=== PATIENT | male | born 1945 | race Caucasian/White ===

== ENCOUNTER 2017-06-20 04:46 | Emergency (ER) | payer MEDICARE ==
--- NOTE | 2017-06-20 04:57 | ERNOTE ---
Back Pain ER HPI Presenting Symptoms: injury/pain to back, hx chronic back pain Time Seen by Provider: 06/20/17 04:48 Source: patient, family, RN notes reviewed Exam Limitations: no limitations Immunizations: IMMUNIZATION HX Immunizations Up to Date Yes Allergies/Adverse Reactions: Allergies No Known Allergies Allergy (Unverified 06/20/17 04:50) Home Medications: HOME MEDICATIONS Amlodipine Besylate 5 mg PO 06/20/17 [Last Taken Unknown] Cyclobenzaprine HCl [Flexeril] 10 mg PO TID PRN #30 tab 06/20/17 [Last Taken Unknown] Finasteride [Proscar] 5 mg PO 06/20/17 [Last Taken Unknown] Losartan/Hydrochlorothiazide [Hyzaar 100-25 Tablet] 1 06/20/17 [Last Taken Unknown] Meloxicam [Mobic] 15 mg PO DAILY 06/20/17 [Last Taken Unknown] Nebivolol HCl [Bystolic] 10 mg PO 06/20/17 [Last Taken Unknown] Ranitidine HCl [Zantac] 150 mg PO 06/20/17 [Last Taken Unknown] oxyCODONE HCL/ACETAMINOPHEN [Oxycodone-Acetaminophen 5-325] 1 each PO Q6H PRN # 16 tablet 06/20/17 [Last Taken Unknown] Narrative: Patient with history of disk problems in his back, comes in tonight stating he thinks he did something again to his back. He was working on a vehicle yesterday , noted the pain last night, woke up tonight with the pain much worse. He does recall that his back hurt last weekend, but it got better and he thought all was well. He has had multiple back surgeries, going to an orthopedic clinic in [place]. He states that this pain is very similar to his pain from his last surgery. Timing: Reports: constant, getting worse Quality/Severity: Reports: severe, throbbing Location of pain: Reports: lower back, radiating to lf thigh/leg Activities at Onset: Reports: activity - working on a vehicle Recent Injury?: Reports: possibly Possible Precipitating Factor: Reports: lifting, turning/bending Modifying Factors - (Improves): Reports: nothing Modifying Factors - (Worsens): Reports: upright position, movement to left, movement flexion, cough/deep breaths Associated Symptoms: Reports: numbess/weakness in legs Prior Treament: Reports: similar symptoms before Review of Systems - Review of Systems Constitutional: Absent: recent illness, fever, chills, weakness, fatigue EYE: Present: no symptoms reported ENT: Absent: ear pain, sore throat Respiratory: Absent: shortness of breath, cough Cardiology: Absent: chest pain, palpitations Gastrointestinal/Abdominal: Absent: nausea, vomiting, diarrhea, constipation, abdominal pain Genitourinary: Present: no symptoms reported Musculoskeletal: Present: back pain, muscle pain Skin: Present: no symptoms reported Neurological: Present: numbness - left thigh, tingling - left thigh Endocrine: Present: no symptoms reported Hematologic/Lymphatic: Present: no symptoms reported Psych: Present: no symptoms reported - Patient's Past Medical History Patient History - Cardiac/Respiratory: Hypertension, Hyperlipidemia Patient History - Surgical Procedures: Back Surgery - Social History Living Situations: home Smoking Status: Former smoker - Immunizations Immunizations Up to Date: Yes Physical Exam - Physical Exam General Appearance: Present: wd/wn, alert, severe distress, anxious, thin Head Exam: Present: normal inspection, no evidence of injury Eye Exam: Normal inspection: bilateral, PERRL: bilateral, EOMI: bilateral Ears, Nose, Throat: Present: normal ENT inspection Neck: Present: normal inspection, nontender Respiratory: Present: no respiratory distress, normal breath sounds, no accessory muscle use, chest nontender, lungs clear Cardiovascular/Chest: Present: regular rate, rhythm, no murmur Gastrointestinal/Abdominal: Present: normal bowel sounds, nontender, nondistended, soft Back Exam: Present: CVA tenderness (L), decreased range of motion Extremity Exam: Present: normal inspection, non-tender, normal range of motion, no edema Neurological Exam: Present: alert, oriented, normal mood/affect, no motor/ sensory deficits Skin Exam: Present: normal color, warm/dry ED Progress - Vital Signs Patient's Vital Signs:: I have reviewed the patient's vital signs. Vital Signs: Vital Signs 06/20/17 04:50 Temperature 36.5 C Pulse Rate 65 Respiratory 20 Rate Blood Pressure 190/103 O2 Sat by Pulse 98 Oximetry - Progress/Reassessment Chief Complaint: Back Pain Progress:: Improved Progress Note-Subjective: 06/20/17 06:57 Morphine 4 mg IM, Ondansetron 4 mg SL Dilaudid 1 mg IM Departure Clinical Impression: Acute thoracic back pain Qualifiers: Back pain laterality: left Qualified Code(s): M54.6 - Pain in thoracic spine - Departure Disposition: Home self-care Condition: Good Instructions: Back Pain, Adult Referrals: Orthopedic [Provider Group] (Call today to be seen as soon as possible at the Orthopedic Clinic you go to in [place].) Prescriptions: Cyclobenzaprine HCl [Flexeril] 10 mg PO TID PRN #30 tab PRN Reason: MUSCLE SPASMS oxyCODONE HCL/ACETAMINOPHEN [Oxycodone-Acetaminophen 5-325] 1 each PO Q6H PRN # 16 tablet PRN Reason: Pain
[2017-06-20] MEDS ORDERED: ONDANSETRON 4 MG TAB.RAPDIS PO ONE (04:58)
[2017-06-20] MEDS ORDERED: MORPHINE SULFATE 4 MG/ML SYRG IM ONE (04:58)
[2017-06-20] MEDS ORDERED: ONDANSETRON 4 MG TAB.RAPDIS ONE (04:59)
[2017-06-20] MEDS ORDERED: MORPHINE SULFATE 4 MG/ML SYRG ONE (04:59)
[2017-06-20] MEDS ORDERED: HYDROmorphone HCL 1 MG/ML DISP.SYRIN IM ONE (06:03)
[2017-06-20] MEDS ORDERED: HYDROmorphone HCL 1 MG/ML DISP.SYRIN ONE (06:06)
[2017-06-20 07:10] VITALS: BP 152/68
== END 2017-06-20 07:30 | disposition home or self-care (01) ==
LOC: ER 04:46
DX: M54.6 Pain in thoracic spine (principal)

== ENCOUNTER 2019-05-19 06:30 | Inpatient (IN) ==
[~2019-05-19 06:30] MED LIST: MORPHINE SULFATE 15 MG TABLET.SA PO PRN; TRANEXAMIC ACID 1,000 MG in NORMAL SALINE 100 ML IV PRN; ceFAZolin SODIUM 1 GM VIAL IV PRN
[2019-05-19] MEDS: RINGER'S SOLUTION,LACTATED 1,000 ML IV PRN ×2 (07:09→08:30)
--- NOTE | 2019-05-19 07:39 | ANES ---
Anesthesia Pre Procedure Eval Vitals/Labs: Last Vital Signs Temp 36.4 C 05/19/19 06:45 Pulse 60 05/19/19 06:45 Resp 18 05/19/19 06:45 BP 147/81 05/19/19 06:45 Pulse Ox 97 05/19/19 06:45 HOME MEDICATIONS Finasteride [Proscar] 5 mg PO DAILY 06/20/17 [Last Taken 05/18/19] aspirin 81 mg tablet,delayed release 81 mg PO DAILY 01/19/19 [Last Taken 05/18/19] atorvastatin 80 mg tablet 80 mg PO DAILY 01/19/19 [Last Taken 05/18/19] clopidogrel 75 mg tablet 75 mg PO DAILY 01/19/19 [Last Taken 05/14/19] hydrochlorothiazide 25 mg tablet 25 mg PO DAILY 01/19/19 [Last Taken 05/19/19] pantoprazole 40 mg tablet,delayed release 40 mg PO DAILY 01/19/19 [Last Taken 05/18/19] Irbesartan [Avapro] 300 mg PO DAILY 05/19/19 [Last Taken 05/18/19] Allergies/Adverse Reactions: Allergies Allergy/AdvReac Type Severity Reaction Status Date / Time No Known Allergies Allergy Verified 05/19/19 06:41 - Planned Procedure Planned Procedure: Left Arthroplasty Total Shoulder Reverse Medication List Reviewed:: Yes Allergies Verified: Yes Medical History (Updated 04/13/19 @ 13:47 by Rell Espinoza MD) Abdominal pain Onset Date: 06/07/03 [facility] BPH without urinary obstruction Onset Date: Unknown Izquierdo's esophagus Onset Date: 06/07/09 [facility] Chest pain Onset Date: 05/21/08 [facility] Gastroesophageal reflux Onset Date: 06/07/09 [facility] Hypertension Onset Date: Unknown [facility] Low back pain Onset Date: Unknown many years Prostatitis Onset Date: Unknown Surgical History (Updated 05/17/19 @ 12:24 by Xenia Kennedy RN) History of esophagogastroduodenoscopy (EGD) Onset Date: 06/07/09 [id number] negative History of hydrocelectomy Onset Date: Unknown History of laminectomy Onset Date: Unknown x4 History of shoulder surgery Onset Date: Unknown History of umbilical hernia repair Onset Date: Unknown S/P endoscopic carpal tunnel release Onset Date: 01/29/19 left hx of stent placement Onset Date: 2016 cardiac Family History (Updated 01/19/19 @ 10:23 by Jeffrey Zhong RN) Father , age 79 Brain tumor Mother Arthritis - Family Anesthesia History Family History:: no untoward family reactions to anesthesia, no familial bleeding tendencies, no family history of clotting disorders, no family history of premature - Airway/Neck/Teeth Teeth Condition: intact Neck Exam: full range of motion Mallampatti Score: 1 Thyromental (T-M) distance: > 6 cm Mandibulo Hyoid distance: > 3 cm - Respiratory Respiratory Physical: lungs clear Smoking Status: Former smoker - quit 30+ years Sleep Apnea currently treated: No Sleep Apnea by current assessment: No - Cardiovascular Cardiac History: CAD, hypertension Tolerate Activity: Fair Heart Sounds: S1 & S2, Regular - Anesthesia Assessment and Plan ASA Class: PS, III Anesthesia Type Plan: General LMA, Block - interscalene block for post op pain relief
--- NOTE | 2019-05-19 10:42 | OR ---
Operative Report - Dictated Report Narrative: DATE OF PROCEDURE: 05/19/2019 PHYSICIAN: Rell Espinoza MD ACID ADJUSTER: Estevan Sargent PA-C (provided and essential set of skilled, educated hands that assisted with transfer, positioning, prepping, draping, manipulation, retraction, placement of implants, irrigation, closure wounds, and application of dressings all which cannot be performed by the available surgical crew) PREOPERATIVE DIAGNOSIS: Left rotator cuff deficient shoulder arthrosis. POSTOPERATIVE DIAGNOSIS: Left rotator cuff deficient shoulder arthrosis. OPERATIONS AND PROCEDURES: Left reverse total shoulder arthroplasty. ANESTHESIA: General plus regional. COMPLICATIONS: None. DRAINS: None. SPECIMENS: Bone -for disposal per patient request. ESTIMATED BLOOD LOSS: 100 mL. RETAINED IMPLANTS: 1. DePuy Delta Xtend cementless metaglene. 2. Delta Xtend glenosphere, 42 mm standard. 3. Delta Xtend size 12 modular humeral CAIN-coated cementless stem. 4. Size 2 left modular eccentric epiphysis CAIN-coated cementless. 5. Delta Xtend standard polyethylene size 42 plus 3 mm. 6. Metaglene locking screws, 36 mm and 42 mm in length. 7. Nonlocking metaglene screws, 18 mm x 2 . INDICATIONS FOR PROCEDURE: Mr. Hair is a 73-year-old gentleman with significant past history of rotator cuff tears and deficiency. He had treated these conservatively and had an irreparable rotator cuff with some progression of arthrosis of the shoulder and difficulty with activities of daily living in pain. He was seen in clinic and had failed conservative measures. He wished to proceed with surgical treatment. The risks, benefits, and alternatives were discussed in clinic, including the risk of , blood clots, bleeding, infection, nerve/tendon/blood vessel injury, malposition of components, failure of components, wear or limited range of motion, stiffness, and need for additional procedures, and she wished to proceed. Consent was obtained here in the clinic. DESCRIPTION OF PROCEDURE: After marking the correct extremity in the preoperative holding area, the patient was taken to the operating room. A timeout was performed. IV antibiotics consisting of Ancef were administered prior to procedure. The regional followed by general anesthetic was induced by the nurse butter maker at my request. He was then transitioned to beach chair position with all bony prominences well padded. The head in neutral, legs with SCDs and supported,and the nonoperative arm supported. The surgical arm was prescrubbed with alcohol then prepped and draped in the standard sterile fashion and the skin was covered with ioban. A deltopectoral incision was made and blunt dissection was carried down through the skin. The cephalic vein was identified, protected, and retracted. We then went through the deltopectoral interval, exposing the proximal humerus. It was noted that there was no rotator cuff, supraspinatus and infraspinatus tendon, or teres minor tendon. The subscapularis was intact as well as the biceps. A tag suture was placed in subscapularis tendon as well as the anterior capsule, and this was elevated off the anterior humerus passing along the bicipital groove and into the rotator cuff interval, exposing the proximal humerus. This was then freed off the proximal humerus. A biceps tenotomy was performed and the shoulder was dislocated. The humeral head was noted to show signs of arthrosis. Next, an entry drill was placed down the humerus centered on the longitudinal a xis entering off just onto the articular surface on the humeral head. Next were serial reamers up to the size 12 were utilized, which gave good overall cortical contact. Next, a proximal humeral head cut was performed. We made the cut at approximately 10 degrees of retroversion. This appeared to resect an appropriate amount of humeral head. There was a large inferior neck osteophyte that extended posteriorly that was resected. This was then pinned into place and an oscillating saw was utilized to cut this humeral head, protecting the surrounding soft tissues. We then placed a cap over the proximal humerus and turned our attention to the glenoid. The soft tissues were then elevated off the humeral neck as well as circumferentially around the glenoid. The glenoid was exposed. The remaining biceps tendon and labrum were resected. Using tractors, the glenoid was exposed and a guidewire was placed just posterior and inferior to the center of the glenoid. This was made so that it directed slightly superiorly but otherwise perpendicular to the glenoid on the axillary plane. Protecting the surrounding soft tissues, a reamer was utilized in order to remove the remaining cartilage. A hand plate stacker was utilized in order to resect the superior cartilage, and this resulted in a good overall appearance of the glenoid. The center drill lug hole was drilled and had good circumferential bone. The metaglene was then impacted into place and oriented for placement of screws along the mid plane in the superior and inferior quadrants of the glenoid as well as anterior to posterior screws. These were drilled and had appropriate overall length of screws on the superior and inferior metaglene screws. Good purchase was obtained with a 36 mm screw superiorly and 42 mm screw inferiorly. The anterior and posterior screws were drilled and 18 mm anterior and 18mm posterior nonlocking screws were placed. We then locked the superior and inferior screws into place. This gave good overall compression down to the glenoid with flat overall appearance and an appropriate alignment. We returned our attention to the proximal humerus. The proximal humeral reaming guide was placed for an eccentric reamer. This was utilized in order to prepare the proximal humerus. The trial stem was assembled on the back table and impacted into place. After placing the trial stem, we then returned to the metaglene. The glenosphere was then secured to the metaglene, impacted, and tightened ensuring that this was seated completely. We then returned to the humeral component and placed the trials of polyethylene inserts and found that the 3mm gave good overall longitudinal traction with no gapping. The shoulder was able to reach 140 degrees of forward flexion and 130 degrees of abduction, external rotation was to 80 degrees and with fulcrum and armpit were unable to hinge the joint out of place, and there was no essentially no gapping of the polyethylene off the humeral head nor any signs of impingement on the glenoid neck. We felt that these were the appropriately placed and sized implants. We then dislocated the shoulder, removed the trial implants, thoroughly irrigated the humerus, impacted the final implants into place in the prior determined retroversion. The trial polyethylene was utilized again and was noted that the actual stem and the trial stem were equal in tension, and thus the final polyethylene was impacted into place. The shoulder was reduced, again noted to be stable, was then thoroughly irrigated. The subscapularis and biceps tendon were secured to the surrounding soft tissues using a #1 Ethibond suture. The deltopectoral interval was closed with #0 Vicryl. The deep tissues were then closed with #0 Vicryl, subcutaneous with 3-0 Monocryl, and the skin with carolynn. Xeroform, 4 x 4, ABD, soft roll, and full arm Chip was applied. The patient was placed in a shoulder sling, awoken, and transferred to postanesthesia care in stable condition. All sponge, needle, and instrument counts were correct prior to closing the wounds. We will obtain postoperative films and be admitted to the floor for postoperative pain control, IV antibiotics, and starting of physical therapy. I anticipate a one to two night hospital stay.
[2019-05-19] MEDS ORDERED: MAGNESIUM HYDROXIDE 30 ML UDC PO PRN (10:44)
[2019-05-19] MEDS ORDERED: DEXTROSE 5%-LACTATED RINGERS 1,000 ML IV PRN (10:44)
[2019-05-19] MEDS ORDERED: ACETAMINOPHEN 500 MG TABLET PO PRN (10:44)
[2019-05-19] MEDS ORDERED: ONDANSETRON HCL/PF 2 MG/ML VIAL IV PRN (10:44)
[2019-05-19] MEDS ORDERED: diphenhydrAMINE HCL 50 MG/ML VIAL IV PRN (10:44)
[2019-05-19] MEDS ORDERED: MAG HYDROX/ALUMINUM HYD/SIMETH 30 ML UDC PO PRN (10:44)
[2019-05-19] MEDS ORDERED: ZOLPIDEM TARTRATE 5 MG TABLET PO PRN (10:44)
--- NOTE | 2019-05-19 10:54 | ANES ---
Post Anesthesia Discharge - Transfer of Care Transfer of Care handoff given to nurse: Yes - Discharge from PACU Discharge from PACU when meets criteria: Yes - Comfortable in PACU.
--- NOTE | 2019-05-19 10:55 | ANES ---
Anesthesia Procedure Note Procedure Note: ANESTHESIA PROCEDURE NOTE Date of Procedure: [05/19/2019 Time of procedure: 7:40 AM. Performed by: REINIER Fuentes CRNA, MSN Test Lead: Tri De La Garza RN. Preprocedure diagnosis: Left total shoulder arthroplasty pain. Post procedure diagnosis: Same. Procedure: Left interscalene nerve block. Indications: Post post left total shoulder surgery pain relief. Findings: See below. Details of the procedure: The patient was brought to OR #4 and placed in semi- Fowlers position. The patient was prepped with chlorhexidine and using ultrasound guidance the left interscalene segment of the brachial plexus was identified and lidocaine 1% was infiltrated to the skin of the intended injection site. Under ultrasound guidance the interscalene nerve bundles were approached with visualization of a 2inch stimulator needle visualized unde ultrasound until a shoulder/arm response was identified on nerve stimulator. Once the stimulator response was effective at less than 0.5 mV and greater than 0.3 mV the bracheal plexus nerves at this level were surrounded with 30 mL bupivacaine 0.55% with 1-200,000 epinephrine. Please see radiology/ultrasound report for details and retained images of the procedure. EBL: 0 Fluids: N/A. Specimen: N/A. Post procedure condition: The patient tolerated the procedure well. No complications were noted. Thank you for this consultation. Justin Garcia CRNA, ARNP, MSN
--- NOTE | 2019-05-19 11:29 | ANES ---
Post Anesthesia Assessment - Vital Signs Vitals: Last Vital Signs Temp 36.6 C 05/19/19 11:05 Pulse 65 05/19/19 11:05 Resp 16 05/19/19 11:05 BP 122/62 05/19/19 11:05 Pulse Ox 96 05/19/19 11:05 Airway Patency: Normal - Mental Status Level Of Consciousness: Awake, Alert, Appropriate - Pain Level Pain Score: 0 - N/V Assessment Nausea/Vomiting Presence: None Dehydration:: No
[2019-05-19] MEDS: KETOROLAC TROMETHAMINE 15 MG/ML VIAL IV SCH ×3 (11:35→22:38)
[2019-05-19] MEDS: ceFAZolin SODIUM 1 GM in DEXTROSE 5 % IN WATER 100 ML IV SCH ×4 (13:02→17:48)
[2019-05-19] MEDS: ASPIRIN 325 MG TABLET.DR PO SCH (20:45)
[2019-05-19] MEDS: MORPHINE SULFATE 15 MG TABLET.SA PO SCH (20:48)
[2019-05-19] MEDS ORDERED: ROSUVASTATIN CALCIUM 20 MG TABLET PO SCH (21:00)
[2019-05-19] MEDS ORDERED: SENNOSIDES/DOCUSATE SODIUM 1 TAB TABLET PO SCH (21:00)
[2019-05-19] MEDS ORDERED: LOSARTAN POTASSIUM 50 MG TABLET PO SCH (22:15)
[2019-05-20] MEDS: ceFAZolin SODIUM 1 GM in DEXTROSE 5 % IN WATER 100 ML IV SCH ×2 (01:23)
[2019-05-20] MEDS: oxyCODONE HCL/ACETAMINOPHEN 1 TAB TABLET PO PRN ×3 (02:05→11:25)
[2019-05-20] MEDS: KETOROLAC TROMETHAMINE 15 MG/ML VIAL IV SCH ×2 (04:02→11:53)
[2019-05-20 05:38] LABS: Hematocrit 43.4 % (42.0-52.0); Hemoglobin 14.4 gm/dL (13.5-18.0); Mean Cell Volume 93.1 fl (78-100); Mean Corpuscular Hemoglobin 30.9 pg (27-31); Mean Corpuscular Hgb Conc 33.2 g/dl (32-36); Mean Platelet Volume 10.7 fl (8-11.3); Platelet Count 151 K/mm3 (150-450); Red Blood Count 4.66 M/mm3 (4.7-6.0); Red Cell Distribution Width 12.7 % (11.5-14.0); White Blood Count 7.3 K/mm3 (4.0-10.5)
[2019-05-20 05:51] LABS: Anion Gap 8.9 mmol/L (6.8-13.8); BUN/Creatinine Ratio 13.5 (9.0-21.6); Calcium * 8.2 mg/dL (7.9-10.9); Carbon Dioxide 29.5 mmol/L (24-32.6); Estimated Creat Clear 46.7; Potassium 3.4 mmol/L (3.4-4.6)
[2019-05-20] MEDS ORDERED: PANTOPRAZOLE SODIUM 40 MG TABLET.EC PO SCH (07:00)
[2019-05-20] MEDS ORDERED: FINASTERIDE 5 MG TABLET PO SCH (09:00)
[2019-05-20] MEDS ORDERED: HYDROCHLOROTHIAZIDE 25 MG TABLET PO SCH (09:00)
[2019-05-20] MEDS: MORPHINE SULFATE 15 MG TABLET.SA PO SCH (09:21)
[2019-05-20] MEDS: ASPIRIN 325 MG TABLET.DR PO SCH (09:21)
--- NOTE | 2019-05-20 11:49 | DS ---
Date of Discharge:: 05/20/19 Description of Stay: Mr. Hair was admitted to the floor after undergoing right reverse total shoulder arthroplasty. Tolerated this well. Was admitted to the floor postoperatively for 24 hours of IV antibiotics, pain control, medical comanagement, and occupational and physical therapy. OT and PT were consulted to assist with activities of daily living and ambulation. Pain was initially controlled with IV regimen. This was transitioned to oral once tolerating a by mouth intake. Was resumed on home diet and medications. SCD and HECTOR hose were utilized for DVT prophylaxis. Vital signs remained stable to the hospital course. Serial labs were obtained which showed a final hemoglobin of 14.4 grams. BMP was reviewed and was stable. Physical examination throughout the hospital course showed an extremity that had sensation that was intact to light touch, palpable pulse. Patient was able to ambulate with physical therapy with the immobilizer on. Once an oral pain regimen was tolerated and physical therapy goals were met, it was felt that they were stable for discharge to home. Instructions: Discharge with instructions to be in immobilizer besides home exercises and therapy. Keep wound clean and dry and covered with dry dressing. If you note any drainage or for comfort you can cover with dry gauze and tape. Change every 2-3 days as needed. Continue with physical therapy. Resume home diet. Report any fever over 101.5 Fahrenheit, uncontrolled pain, increased drainage, foul odor of drainage, new or increased calf pain or shortness of breath, or any other significant complaints. He was instructed to resume his Plavix on Friday, May 22. No driving until instructed otherwise. Follow up in approximately 10-14 days. Procedures Performed: see notes below List Procedures: Right reverse total shoulder arthroplasty Results and Findings: Lab Pending Results 05/20/19 05:15: WBC 7.3, RBC 4.66 L, Hgb 14.4, Hct 43.4, MCV 93.1, MCH 30.9, MCHC 33.2, RDW 12.7, Plt Count 151, MPV 10.7 05/20/19 05:15: Sodium 138, Plasma Sodium 138, Potassium 3.4, Chloride 103, Carbon Dioxide 29.5, Anion Gap 8.9, BUN 21, Creatinine 1.55 H, Est GFR (Non-Af Amer) 47 L, BUN/Creatinine Ratio 13.5, Random Glucose 121 H, Calcium 8.2 Discharge Location: Home Disposition: Home self-care Condition: Good Discharge Activity: Other - In immobilizer Discharge Diet: Low salt Referrals: Rell Espinoza MD [Staff Physician] - 06/14/19 10:30 am Problem Oriented Discharge Instructions to Patient/Family: Shoulder Joint Replacement Additional Patient Instructions (free text): Occupational Therapy at [facility] outpatient rehab on Friday at 1:00pm. Follow up in the office with Dr. Espinoza on at 10:30am. Prescriptions (Any new or edited meds): Morphine Sulfate [Ms Contin] 15 mg PO Q12H #20 tablet.sa oxyCODONE HCL/ACETAMINOPHEN [Percocet 5 MG/325 MG] 2 tab PO Q4H PRN #60 tab PRN Reason: Moderate Pain (Pain Scale 4-6) Sennosides/Docusate Sodium [Senokot-S] 2 tab PO HS #30 tab Complete Home Medications List: Complete Home Medication List: Finasteride [Proscar] 5 mg PO DAILY 06/20/17 aspirin 81 mg tablet,delayed release 81 mg PO DAILY 01/19/19 atorvastatin 80 mg tablet 80 mg PO DAILY 01/19/19 clopidogrel 75 mg tablet 75 mg PO DAILY 01/19/19 hydrochlorothiazide 25 mg tablet 25 mg PO DAILY 01/19/19 pantoprazole 40 mg tablet,delayed release 40 mg PO DAILY 01/19/19 Irbesartan [Avapro] 300 mg PO DAILY 05/19/19 Morphine Sulfate [Ms Contin] 15 mg PO Q12H #20 tablet.sa 05/20/19 Sennosides/Docusate Sodium [Senokot-S] 2 tab PO HS #30 tab 05/20/19 oxyCODONE HCL/ACETAMINOPHEN [Percocet 5 MG/325 MG] 2 tab PO Q4H PRN #60 tab 05/20/19 Amb Orders for Discharge: OT Evaluation and Treatment Location: None Selected
[2019-05-20 13:25] VITALS: BP 130/72
== END 2019-05-20 13:25 | disposition home or self-care (01) | DRG 483 ==
LOC: MS 06:30
PROVIDERS: ADMIT Orthopaedic Surgery; ATTEND Orthopaedic Surgery
DX: I10 Essential (primary) hypertension; I25.10 Atherosclerotic heart disease of native coronary artery without angina pectoris; M75.122 Complete rotator cuff tear or rupture of left shoulder, not specified as traumatic; M19.012 Primary osteoarthritis, left shoulder
CPT/HCPCS: 36415; 73030; 80048; 85027; 97110; 97161; 97165

== ENCOUNTER 2019-10-05 06:32 | Inpatient (IN) ==
[~2019-10-05 06:32] MED LIST changes: +ISOPROPYL ALCOHOL 480 APPL BTL MC ONE; -MORPHINE SULFATE 15 MG TABLET.SA PO PRN; +ceFAZolin SODIUM 1 GM VIAL ONE
[2019-10-05] MEDS ORDERED: PROPOFOL VIAL IV ONE (07:11)
[2019-10-05] MEDS ORDERED: ONDANSETRON HCL/PF 2 MG/ML VIAL ONE (07:11)
[2019-10-05] MEDS ORDERED: BUPIVACAINE HCL/EPINEPHRINE 50 ML VIAL ONE (07:11)
[2019-10-05] MEDS: RINGER'S SOLUTION,LACTATED 1,000 ML IV PRN ×2 (07:14→08:50)
--- NOTE | 2019-10-05 07:33 | ANES ---
Anesthesia Pre Procedure Eval Vitals/Labs: Last Vital Signs Temp 36.7 C 10/05/19 06:42 Pulse 64 10/05/19 06:42 Resp 18 10/05/19 06:42 BP 158/88 H 10/05/19 06:42 Pulse Ox 98 10/05/19 06:42 HOME MEDICATIONS Finasteride [Proscar] 5 mg PO DAILY 06/20/17 [Last Taken 05/18/19] aspirin 81 mg tablet,delayed release 81 mg PO DAILY 01/19/19 [Last Taken 05/18/19] atorvastatin 80 mg tablet 80 mg PO DAILY 01/19/19 [Last Taken 05/18/19] hydrochlorothiazide 25 mg tablet 25 mg PO DAILY 01/19/19 [Last Taken 10/05/19 05:45] pantoprazole 40 mg tablet,delayed release 40 mg PO DAILY 01/19/19 [Last Taken 05/18/19] Irbesartan [Avapro] 300 mg PO HS 05/19/19 [Last Taken 10/04/19] naproxen sodium 220 mg tablet 220 mg PO BID PRN 06/03/19 [Last Taken Unknown] gabapentin 600 mg tablet 600 mg PO HS tab 09/24/19 [Last Taken Unknown] Allergies/Adverse Reactions: Allergies Allergy/AdvReac Type Severity Reaction Status Date / Time No Known Allergies Allergy Verified 09/24/19 08:03 - Planned Procedure Planned Procedure: Right Total Shoulder vs Reverse Total Shoulder Medication List Reviewed:: Yes Allergies Verified: Yes Medical History (Last Reviewed 10/05/19 @ 07:32 by Hernán Bedolla CRNA) Abdominal pain Onset Date: 06/07/03 [facility] BPH without urinary obstruction Onset Date: Unknown Izquierdo's esophagus Onset Date: 06/07/09 [facility] Chest pain Onset Date: 05/21/08 Beckert, benign Gastroesophageal reflux Onset Date: 06/07/09 [facility] Hypertension Onset Date: Unknown [facility] Low back pain Onset Date: Unknown many years Prostatitis Onset Date: Unknown Surgical History (Last Reviewed 10/05/19 @ 07:32 by Hernán Bedolla CRNA) Status post reverse total shoulder replacement (Chronic) Left, Alexis 05/19/19 Right, Sofiyalittle 10/05/2019 History of esophagogastroduodenoscopy (EGD) Onset Date: 06/07/09 [id number] negative History of hydrocelectomy Onset Date: Unknown History of laminectomy Onset Date: Unknown x4 History of shoulder surgery Onset Date: Unknown History of umbilical hernia repair Onset Date: Unknown S/P endoscopic carpal tunnel release Onset Date: 01/29/19 left hx of stent placement Onset Date: 2016 cardiac Family History (Last Reviewed 10/05/19 @ 07:32 by Hernán Bedolla CRNA) Father , age 79 Brain tumor Mother Arthritis - Family Anesthesia History Family History:: no untoward family reactions to anesthesia - Airway/Neck/Teeth Within Normal Limits:: Yes Teeth Condition: intact Neck Exam: full range of motion Mallampatti Score: 2 Thyromental (T-M) distance: > 6 cm Mandibulo Hyoid distance: > 3 cm - Respiratory Respiratory Physical: lungs clear Smoking Status: Former smoker Sleep Apnea currently treated: No Sleep Apnea by current assessment: No - Cardiovascular Cardiac History: hypertension, hyperlipidemia Tolerate Activity: Good Heart Sounds: S1 & S2, Regular - Gastrointestinal NPO since: [place] - Anesthesia Assessment and Plan ASA Class: PS, II Anesthesia Type Plan: General LMA - interscalene nerve block Planned difficult intubation/equipment available: No
[2019-10-05] MEDS ORDERED: ACETAMINOPHEN 500 MG TABLET PO PRN (10:14)
[2019-10-05] MEDS ORDERED: MAGNESIUM HYDROXIDE 30 ML UDC PO PRN (10:14)
[2019-10-05] MEDS ORDERED: oxyCODONE HCL/ACETAMINOPHEN 1 TAB TABLET PO PRN (10:14)
[2019-10-05] MEDS ORDERED: MORPHINE SULFATE 2 MG/ML DISP.SYRIN IV PRN (10:14)
[2019-10-05] MEDS ORDERED: NORMAL SALINE 1,000 ML IV PRN (10:14)
[2019-10-05] MEDS ORDERED: MAG HYDROX/ALUMINUM HYD/SIMETH 30 ML UDC PO PRN (10:14)
[2019-10-05] MEDS ORDERED: ONDANSETRON HCL/PF 2 MG/ML VIAL IV PRN (10:14)
--- NOTE | 2019-10-05 10:26 | OR ---
Operative Report - Dictated Report Narrative: Date: 10/05/2019 Physician: Mook Troncoso M.D. Internist: Feroz Powers PA-C provided a set of essential, skilled, educated hands that assisted in positioning, transfer, retraction, manipulation, irrigation, closure of wounds, and placement of dressings all of which could not be provided by the available surgical crew. Preoperative diagnosis: Right shoulder glenohumeral osteoarthritis Postoperative diagnosis: Right shoulder glenohumeral osteoarthritis Procedure: Right anatomic total shoulder arthroplasty Anesthesia: General plus regional Complications: None Estimated blood loss: 200 mL Specimens: Bone for disposal Retained implants: Depuy Global Unite size 12 standard stem, Global Unite anatomic proximal body size 12, Global Unite eccentric humeral head 56 mm x 18 mm, Global anchor peg glenoid size 56 mm, Erazo [employer] Nephew Q fix 2.8 mm all suture anchors x2 Drains: None Indications: Shaw is a 74 year-old male who has been followed in my clinic with complaints of shoulder pain consistent with right glenohumeral arthritis. Physical exam and diagnostic imaging were consistent with his complaints and concern for glenohumeral arthritis with an intact rotator cuff. Conservative measures have failed including, but not limited to, passage of time, activity modification, medications, physical therapy/home exercise program, or injections. The risks, benefits, and alternatives were discussed in clinic. The risks being , bleeding, infection, blood clots, nerve, tendon, ligament, blood vessel injury, persistent pain, arthrosis, stiffness, need for prolonged therapy, implant failure/loosening, need for additional procedures, and persistent symptoms. Consent was obtained in the clinic. Procedure: After marking the correct extremity in the preoperative holding area, a timeout was performed in the operating room. IV antibiotics consisting of 2 g of Ancef were administered prior to the procedure. A general followed by regional anesthetic was induced by the nurse lump roller. This was in the supine position, then the patient was transitioned to a beachchair position with all bony prominences well-padded, head in neutral, the nonoperative arm well supported, and the legs padded with SCDs in place. The operative shoulder was then prepped and draped in a standard sterile fashion. Preoperatively the shoulder had slightly limited abduction and external rotation. After marking out the bony landmarks, an approximately 12 cm deltopectoral incision was marked out and incised with a sharp knife. A combination of blunt dissection and electrocautery was carried down through subcutaneous tissue to the level of the deltopectoral fascia. The fascial interval was developed with Metzenbaum scissors identifying the cephalic vein which was protected. Blunt finger dissection was used to develop the deltopectoral interval and the deltoid and cephalic vein were retracted laterally while the pectoralis major was retracted medially. This revealed the conjoined tendon and anterior aspect of the shoulder. The bicipital groove was identified as well as the lesser tuberosity and we marked out our location for our subscapularis tenotomy. The subscapularis tendon was tagged with Vicryl suture and then peeled off of its insertion. Our incision was carried up through the rotator cuff interval to the level of the glenoid. The inferior aspect of the subscapularis as well as the inferior capsule was released taking care to protect the axillary nerve. The capsule was then released from the anterior and inferior aspects of the glenoid. At this point the arm was externally rotated and the shoulder dislocated delivering the humeral head up and out of the wound. The supraspinatus tendon was inspected and noted to be intact. At this point we identified our starting point for the humeral starting reamer centered over the intramedullary canal just onto the articular surface of the superior aspect of the humeral head. The entry reamer was advanced down the intramedullary canal of the humerus. Sequential hand reaming up to a size 12 mm reamer was performed achieving good chatter cortical chatter. The reamer was left in place and then the humeral head cutting jig was attached. This was placed in approximately 35 of r etroversion at the appropriate height based on the level of the greater tuberosity. This was then pinned into place and the reamer removed. The humeral head was then resected being careful to protect the supraspinatus insertion. A rongeur was used to clean up some anterior and inferior osteophyte. A protective metal cap was then placed over the cut end of the proximal humerus. Attention was then turned to the glenoid. A series of glenoid retractors were used to retract the humeral head posteriorly and inferior out of the way well as to retract the anterior soft tissue giving us 360 exposure of the glenoid. The labrum was then removed in its entirety with a sharp knife. The base of the coracoid was identified as well as the inferior/lateral border of the scapula and these were marked out to establish the bony anatomy of the glenoid. The glenoid was sized to a 56 mm component. The glenoid guide was then placed in the appropriate position and the center guide pin was advanced into place. The glenoid was then reamed removing all cartilage and soft tissue being careful to preserve subchondral bone. The central peg drill was then advanced down over our central pin and drilled. The drill guide for the peripheral pegs was then placed with one peg superiorly and two pegs inferiorly. These were sequentially drilled. The guide was then removed. The glenoid was then irrigated and thoroughly dried and bone cement was packed into the peripheral peg holes. A size 56 mm Global anchor peg glenoid was then impacted into place. Once the cement had adequately cured we turned our attention back to the humerus. A size 12 broach was advanced into the appropriate position once again in 35 of retroversion. A size 12 trial humeral stem was then impacted into place and we began trialing humeral heads. It was determined that a size 56 x 18 mm eccentric head with the eccentricity placed posteriorly gave us the best fit with good stability. Full passive range of motion was able to be obtained. The final humeral components were then assembled on the back table and then impacted into its final position in the appropriate amount of retroversion. A final check demonstrated full passive range of motion with good stability. At this point the wound was copiously irrigated with normal saline. The subscapularis was repaired with two 2.8 mm all suture anchors in the lesser tuberosity. 0 Vicryl was utilized in order to close the delto-pectoral fascia. 3-0 Vicryl was placed in the subcutaneous tissue. Skin was closed with a running subcuticular 4-0 Monocryl. Dressings consisting of Prineo, 4 x 4, ABD, and tape were applied. The operative arm was then placed in a shoulder immobilizer. All sponge, needle, blade, and instrument counts were correct prior to closing the wounds. The patient was awoken and transferred to the postanesthesia care unit in stable condition.
--- NOTE | 2019-10-05 10:42 | ANES ---
Post Anesthesia Discharge - Transfer of Care Transfer of Care handoff given to nurse: Yes - Discharge from PACU Discharge from PACU when meets criteria: Yes
--- NOTE | 2019-10-05 10:46 | ANES ---
Anesthesia Procedure Note Procedure Note: ANESTHESIA PROCEDURE NOTE Date of procedure: 10/05/2019. Time of procedure: 07 35. Performed by: Twan Bedolla CRNA Field Staff: Tri De La Garza RN . Preprocedure diagnosis: Right shoulder DJD. Post procedure diagnosis: Same. Procedure: Ultrasound-guided right interscalene nerve block Indications: Postop analgesia for right total shoulder arthroplasty. Findings: Patient brought to operating room #3 given a general anesthetic induction with LMA insertion. Patient was then placed in a semi-Fowlers position. Right side of patient's neck was prepped with ChloraPrep. Ultrasound utilized to identify the brachial plexus in the right interscalene groove. A 22-gauge 2 inch regional block needle was advanced under ultrasound guidance until tip of needle was placed just proximal to brachial plexus. Nerve stimulator was utilized with muscle twitch noted starting at 0.8 mA until decreased to 0.5 mA. Muscle twitch disappeared at 0.5 mA. 20 mL of 0.5% Marcaine with epinephrine 1-200,000 was injected adequate spread of local anesthesia noted around the nerve roots. Regional block needle was repositioned until placed just distal to brachial plexus. A second dose of 20 mL of 0.5% Marcaine with epinephrine 1-200,000 was injected again with adequate spread of local anesthesia noted a around the nerve roots. Regional block needle was removed intact. EBL: Minimal. Fluids: N/A. Specimen: N/A. Post procedure condition: The patient tolerated the procedure well. No complications were noted. Thank you for this consultation Twan Bedolla CRNA
[2019-10-05] MEDS: ceFAZolin SODIUM 2 GM in DEXTROSE 5 % IN WATER 50 ML IV SCH ×4 (13:46→21:18)
[2019-10-05] MEDS ORDERED: BENZOCAINE/MENTHOL 16 EACH BOX MM PRN (15:36)
--- NOTE | 2019-10-05 16:42 | ANES ---
Post Anesthesia Assessment - Vital Signs Vitals: Last Vital Signs Temp 36.4 C 10/05/19 11:09 Pulse 78 10/05/19 13:54 Resp 16 10/05/19 13:54 BP 137/85 10/05/19 13:54 Pulse Ox 94 10/05/19 13:54 Airway Patency: Normal - Mental Status Level Of Consciousness: Awake - Pain Level Pain Score: 0 - N/V Assessment Nausea/Vomiting Presence: None Dehydration:: No
[2019-10-05] MEDS: oxyCODONE HCL/ACETAMINOPHEN 1 TAB TABLET PO PRN (20:51)
[2019-10-05] MEDS ORDERED: SENNOSIDES/DOCUSATE SODIUM 1 TAB TABLET PO SCH (21:00)
[2019-10-05] MEDS ORDERED: GABAPENTIN 600 MG TABLET PO SCH (21:00)
[2019-10-05] MEDS ORDERED: ROSUVASTATIN CALCIUM 20 MG TABLET PO SCH (21:00)
[2019-10-05] MEDS ORDERED: LOSARTAN POTASSIUM 50 MG TABLET PO SCH (21:00)
[2019-10-06] MEDS: oxyCODONE HCL/ACETAMINOPHEN 1 TAB TABLET PO PRN ×3 (00:54→09:42)
[2019-10-06] MEDS: ceFAZolin SODIUM 2 GM in DEXTROSE 5 % IN WATER 50 ML IV SCH ×2 (05:39)
[2019-10-06] MEDS ORDERED: HYDROCHLOROTHIAZIDE 25 MG TABLET PO SCH (09:00)
[2019-10-06] MEDS ORDERED: PANTOPRAZOLE SODIUM 40 MG TABLET.EC PO SCH (09:00)
[2019-10-06] MEDS ORDERED: ASPIRIN 81 MG TABLET.DR PO SCH (09:00)
[2019-10-06] MEDS ORDERED: FINASTERIDE 5 MG TABLET PO SCH (09:00)
[2019-10-06 11:11] VITALS: BP 103/59
--- NOTE | 2019-10-06 11:14 | DS ---
Date of Discharge:: 10/06/19 Hospital Course: Carrington is 74-year-old male who was admitted for observation postoperatively after a right anatomic total shoulder replacement. Patient surgery was uncomplicated. Patient has had an uncomplicated stay to this point. Patient been up and ambulated with physical therapy. Patient's pain is under control with p.o. pain medication. Patient is suffering from no other significant postoperative complications currently. Exam revealed right upper extremity sensation intact light touch including deltoid region, sensation intact light touch, distal capillary refill brisk, 5- out of 5 interpretive naturalist strength, patient is in a sling immobilizer. Dressings were removed, revealed a pernio bandage without significant erythema or drainage. Patient will maintain this dressing in place until follow-up at orthopedic office at 2 weeks postop. Patient will be discharged today home, he will follow-up in 2 weeks at orthopedic outpatient clinic. Patient will call for any acute questions or concerns. He will continue with the following recommendations: -PT/OT progress per protocol -P.o. pain medication PRN, Percocet 5/325 mg tabs, 1-2 tabs every 4 to 6 hours -Remain in sling immobilizer for all activity outside of bathing and PT/OT -Follow-up in orthopedic outpatient clinic at 2 weeks postop -P.o. diet as tolerated -Call orthopedic outpatient clinic with any significant concerns acutely Procedures Performed: see notes below List Procedures: Status post right anatomic total shoulder replacement Discharge Location: Home Disposition: Home self-care Condition: Good Discharge Activity: Activity as tolerated, Other - Right upper extremity sling immobilizer, nonweightbearing right upper extremity Discharge Diet: General/regular food Referrals: oMok Troncoso MD [Staff Physician] - 10/20/19 9:15 am Problem Oriented Discharge Instructions to Patient/Family: Shoulder Joint Replacement, Care After Print Language (Montserratian or Tamazight Available): Montserratian Additional Patient Instructions (free text): Physical Therapy at [facility] outpatient rehab department on October 07 at 9:00am. Follow up Orthopedic office with Dr. Troncoso on FridayOctober 20 at 9:15am. Prescriptions (Any new or edited meds): oxyCODONE HCL/ACETAMINOPHEN [Percocet 5 MG/325 MG] 1 - 2 tab PO Q4H PRN #60 tab PRN Reason: Severe Pain (Pain Scale 7-10) Transmission Status: Received by [facility] #[id number] Complete Home Medications List: Complete Home Medication List: Finasteride [Proscar] 5 mg PO DAILY 06/20/17 aspirin 81 mg tablet,delayed release 81 mg PO DAILY 01/19/19 atorvastatin 80 mg tablet 80 mg PO DAILY 01/19/19 hydrochlorothiazide 25 mg tablet 25 mg PO DAILY 01/19/19 pantoprazole 40 mg tablet,delayed release 40 mg PO DAILY 01/19/19 Irbesartan [Avapro] 300 mg PO HS 05/19/19 naproxen sodium 220 mg tablet 220 mg PO BID PRN 06/03/19 gabapentin 600 mg tablet 600 mg PO HS tab 09/24/19 oxyCODONE HCL/ACETAMINOPHEN [Percocet 5 MG/325 MG] 1 - 2 tab PO Q4H PRN #60 tab 10/06/19 Amb Orders for Discharge: OT Evaluation and Treatment Location: None Selected PT Evaluation and Treatment* Location: None Selected
== END 2019-10-06 11:45 | disposition home or self-care (01) | DRG 483 ==
LOC: MS 06:32
PROVIDERS: ADMIT Orthopaedic Surgery; ATTEND Orthopaedic Surgery
DX: Z87.891 Personal history of nicotine dependence; M19.011 Primary osteoarthritis, right shoulder; I10 Essential (primary) hypertension; I25.10 Atherosclerotic heart disease of native coronary artery without angina pectoris; K21.9 Gastro-esophageal reflux disease without esophagitis
CPT/HCPCS: 73030; 97110; 97116; 97161; 97165; 97535; C1713; J2405